=== PATIENT | male | born 1960 | race African-American/Black ===

== ENCOUNTER 2018-01-05 08:43 | Day surgery (SDC) | payer OTHER ==
[~2018-01-05 08:43] MED LIST: CLINDAMYCIN 900 MG/50 ML D5W IVPB IVPB; DEXAMETHASONE 4 MG/ML 1 ML INJ; ONDANSETRON 4 MG INJ
[2018-01-05] MEDS ORDERED: FENTAnyl 50 MCG/ML VIAL ×2 (11:52→13:10)
[2018-01-05] MEDS ORDERED: LIDOCAINE 2% (SDV) 5 ML INJ (11:53)
[2018-01-05] MEDS ORDERED: PROPOFOL 20 ML (11:53)
[2018-01-05] MEDS ORDERED: METOCLOPRAMIDE 10 MG INJ (11:53)
[2018-01-05] MEDS: BUPIVACAINE 0.25% (MPF) 30 ML INJ (12:25)
[2018-01-05] MEDS ORDERED: ONDANSETRON 4 MG INJ IV (12:30)
[2018-01-05] MEDS ORDERED: IPRATROPIUM (NEB) 0.5 MG/2.5 ML AMP HHN (12:30)
[2018-01-05] MEDS ORDERED: hydrALAzine 20 MG INJ IV (12:30)
[2018-01-05] MEDS ORDERED: HYDROmorphONE 1 MG/5 ML IV SYRINGE IV ×2 (12:30)
[2018-01-05] MEDS ORDERED: MEPERIDINE 25 MG INJ IV (12:30)
[2018-01-05] MEDS ORDERED: FENTAnyl 50 MCG/ML VIAL IV (12:30)
[2018-01-05] MEDS ORDERED: DIPHENHYDRAMINE 50 MG INJ IV (12:30)
[2018-01-05] MEDS ORDERED: KETOROLAC 30 MG INJ IV (12:30)
[2018-01-05] MEDS ORDERED: LABETALOL HCL 20MG INJ IV (12:30)
[2018-01-05] MEDS ORDERED: MIDAZOLAM 1 MG/ML 2 ML INJ (12:46)
[2018-01-05] MEDS: FENTAnyl 50 MCG/ML VIAL IV (14:59)
[2018-01-05] MEDS: HYDROCODONE/APAP (5/325) TAB PO (15:54)
== END 2018-01-05 18:00 | disposition home or self-care (01) ==
LOC: SDS 08:43
DX: D17.21 Benign lipomatous neoplasm of skin and subcutaneous tissue of right arm (principal)
CPT/HCPCS: 14001; 88307

== ENCOUNTER 2019-02-06 05:32 | Day surgery (SDC) | payer OTHER ==
[2019-02-06] MEDS ORDERED: POLYMYXIN/BACITRACIN 1L IRRIG (06:56)
[2019-02-06] MEDS ORDERED: ROPIVACAINE 0.5 % 30 ML VIAL (08:54)
[2019-02-06] MEDS ORDERED: LIDOCAINE 2% (SDV) 5 ML INJ (08:54)
[2019-02-06] MEDS ORDERED: MIDAZOLAM 1 MG/ML 2 ML INJ (08:54)
[2019-02-06] MEDS ORDERED: ETOMIDATE 20 MG INJ (08:54)
[2019-02-06] MEDS ORDERED: FENTAnyl 50 MCG/ML VIAL (08:54)
[2019-02-06] MEDS: LIDOCAINE 2% (MDV) 20 ML INJ (09:45)
[2019-02-06] MEDS: DEXAMETHASONE 4 MG/ML 1 ML INJ (09:45)
[2019-02-06] MEDS: BUPIVACAINE 0.5% (SDV) 30 ML INJ (09:45)
[2019-02-06] MEDS: HYDROmorphONE 1 MG/ML SYG IV (11:06)
== END 2019-02-06 12:00 | disposition home or self-care (01) ==
LOC: SDS 05:32
DX: M72.2 Plantar fascial fibromatosis (principal); I10 Essential (primary) hypertension; F17.200 Nicotine dependence, unspecified, uncomplicated; J44.9 Chronic obstructive pulmonary disease, unspecified
CPT/HCPCS: 28119